=== PATIENT | male | born 1995 | race Caucasian/White ===

== ENCOUNTER 2019-03-10 11:46 | Emergency (ER) | payer SELFPAY ==
[~2019-03-10] VITALS: Ht 167.6 cm; Wt 97.5 kg
--- OUTSIDE RECORDS SUMMARY | 2019-03-10 11:52 | XMS REPORT | Continuity of Care Document ---
Author Organization Unknown Address Unknown Allergies There is no data. Medications There is no data. Problems There is no data. Procedures There is no data. Results There is no data. Encounters ACCT No. Visit Date/Time Discharge Status Pt. Type Provider Facility Loc./Unit Complaint [id number] 06/03/2014 17:11:00 06/03/2014 19:59:00 DIS Emergency [id number] 05/22/2014 21:39:00 05/23/2014 00:18:00 DIS Emergency [id number] 05/21/2014 18:49:00 05/21/2014 23:59:59 CLS Emergency
[2019-03-10] MEDS ORDERED: NS IV 1000 ML 1,000 ML IV STA (12:04)
--- NOTE | 2019-03-10 12:10 | ED Abdominal Pain ---
General Chief Complaint: Abdominal/GI Problems Stated Complaint: VOMITING Nursing Triage Note: Patient reports he went to bed well last night, woke up this morning feeling nauseous, began vomiting around 7 am. States he has vomited approximately 6-7 times this morning, states the last emesis had two streaks of dark red blood. Patient denies any pain, states his abdomen is "sore from throwing up." Normal bowel movement last night. Sepsis Screen: No Definite Risk History of Present Illness Date Seen by Provider: Mar 10, 2019 Time Seen by Provider: 12:07 Initial Comments 23-year-old male with a history of vomiting beginning this morning. He does not know the offending foods ingestion, alcohol or other drug usage. Has been taking quite a bit of ibuprofen recently. Noticed a small amount of blood in his emesis today. No melena or hematochezia reported. Denies fever, chills, urinary symptoms or other associated problems. No urinary complaints reported. Timing/Duration: 12 Hours Severity/Quality: Moderate Location: Epigastric Radiation: No Radiation Allergies and Home Medications Allergies Coded Allergies: cefaclor (Verified Allergy, Unknown, rash, 03/10/19) Patient Home Medication List Home Medication List Reviewed: Yes Review of Systems Review of Systems Constitutional: see HPI, malaise EENTM: No Symptoms Reported Respiratory: No Symptoms Reported Cardiovascular: No Symptoms Reported Gastrointestinal: See HPI Genitourinary: No Symptoms Reported Musculoskeletal: no symptoms reported Skin: no symptoms reported Psychiatric/Neurological: No Symptoms Reported Endocrine: No Symptoms Reported Hematologic/Lymphatic: No Symptoms Reported Past Gisvucd-Bjfnvm-Uyuiij Hx Past Med/Social Hx: Reviewed Nursing Past Med/Soc Hx Patient Social History Recent Foreign Travel: No Contact w/Someone Who Travel: No Recent Infectious Disease Expo: No Physical Exam Vital Signs Vital Signs - First Documented 03/10/19 11:50 Temp 98.6 Pulse 88 Resp 18 B/P (MAP) 132/81 (98) Pulse Ox 93 O2 Delivery Room Air Capillary Refill : Less Than 3 Seconds Height/Weight/BMI Height: 5'6.00" Weight: 215lbs. oz. 97.558692un; BMI Method:Stated General Appearance: WD/WN, no apparent distress HEENT: PERRL/EOMI, normal ENT inspection, TMs normal, pharynx normal; No scleral icterus (R), No scleral icterus (L) Neck: non-tender, full range of motion, supple, normal inspection Respiratory: chest non-tender, lungs clear, normal breath sounds, no respiratory distress, no accessory muscle use Cardiovascular: regular rate, rhythm, no edema, no gallop Gastrointestinal: normal bowel sounds, no organomegaly, no pulsatile mass; No distended; tenderness (in epigastrium) Extremities: normal range of motion, non-tender, normal inspection, no pedal edema, no calf tenderness Back: normal inspection, no CVA tenderness, no vertebral tenderness Neurologic/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: 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, no motor/sensory deficits, alert, normal mood/affect, oriented x 3 Skin: normal color, warm/dry Lymphatic: no adenopathy Progress/Results/Core Measures Results/Orders Lab Results Laboratory Tests Test 03/10/19 12:16 03/10/19 12:40 03/10/19 12:42 Range/Units White Blood Count 10.0 4.3-11.0 10^3/uL Red Blood Count 5.40 4.35-5.85 10^6/uL Hemoglobin 16.2 13.3-17.7 G/DL Hematocrit 48 40-54 % Mean Corpuscular Volume 89 80-99 FL Mean Corpuscular Hemoglobin 30 25-34 PG Mean Corpuscular Hemoglobin Concent 34 32-36 G/DL Red Cell Distribution Width 14.2 10.0-14.5 % Platelet Count 260 130-400 10^3/uL Mean Platelet Volume 9.8 7.4-10.4 FL Neutrophils (%) (Auto) 67 42-75 % Lymphocytes (%) (Auto) 22 12-44 % Monocytes (%) (Auto) 11 0-12 % Eosinophils (%) (Auto) 1 0-10 % Basophils (%) (Auto) 0 0-10 % Neutrophils # (Auto) 6.6 1.8-7.8 X 10^3 Lymphocytes # (Auto) 2.2 1.0-4.0 X 10^3 Monocytes # (Auto) 1.1 H 0.0-1.0 X 10^3 Eosinophils # (Auto) 0.1 0.0-0.3 10^3/uL Basophils # (Auto) 0.0 0.0-0.1 10^3/uL Sodium Level 143 135-145 MMOL/L Potassium Level 3.7 3.6-5.0 MMOL/L Chloride Level 105 98-107 MMOL/L Carbon Dioxide Level 25 21-32 MMOL/L Anion Gap 13 5-14 MMOL/L Blood Urea Nitrogen 10 7-18 MG/DL Creatinine 0.92 0.60-1.30 MG/DL Estimat Glomerular Filtration Rate > 60 BUN/Creatinine Ratio 11 Glucose Level 87 70-105 MG/DL Calcium Level 9.1 8.5-10.1 MG/DL Corrected Calcium 9.0 8.5-10.1 MG/DL Total Bilirubin 0.3 0.1-1.0 MG/DL Aspartate Amino Transf (AST/SGOT) 15 5-34 U/L Alanine Aminotransferase (ALT/SGPT) 15 0-55 U/L Alkaline Phosphatase 79 40-136 U/L Total Protein 7.1 6.4-8.2 GM/DL Albumin 4.1 3.2-4.5 GM/DL Amylase Level 67 25-125 U/L Serum Alcohol 28 H <10 MG/DL Urine Color YELLOW Urine Clarity CLEAR Urine pH 5.5 5-9 Urine Specific [place] >1.030 1.016-1.022 Urine Protein NEGATIVE NEGATIVE Urine Glucose (UA) NEGATIVE NEGATIVE Urine Ketones NEGATIVE NEGATIVE Urine Nitrite NEGATIVE NEGATIVE Urine Bilirubin NEGATIVE NEGATIVE Urine Urobilinogen 0.2 NORMAL MG/DL Urine Leukocyte Esterase NEGATIVE NEGATIVE Urine RBC (Auto) NEGATIVE NEGATIVE Urine RBC NONE /HPF Urine WBC NONE /HPF Urine Crystals NONE /LPF Urine Bacteria NONE /HPF Urine Casts NONE /LPF Urine Mucus MODERATE H /LPF Urine Culture Indicated NO My Orders Orders - ADAMS SAM MD Comprehensive Metabolic Panel (03/10/19 12:04) Amylase (03/10/19 12:04) Ua Culture If Indicated (03/10/19 12:04) Ed Iv/Invasive Line Start (03/10/19 12:04) Cbc With Automated Diff (03/10/19 12:04) Ct Abdomen/Pelvis Wo (03/10/19 12:04) Ondansetron Injection (Zofran Injectio (03/10/19 12:15) Ns Iv 1000 Ml (Sodium Chloride 0.9%) (03/10/19 12:04) Alcohol (03/10/19 12:04) Pantoprazole Injection (Protonix Injecti (03/10/19 12:15) Lipase (03/10/19 12:51) Medications Given in ED Current Medications Medications Dose Ordered Sig/Mickey Route Start Time Stop Time Status Last Admin Dose Admin Ondansetron HCl 4 mg ONCE ONCE IVP 03/10/19 12:15 03/10/19 12:16 DC 03/10/19 12:21 4 MG Pantoprazole 40 mg ONCE ONCE IV 03/10/19 12:15 03/10/19 12:16 DC 03/10/19 12:21 40 MG Vital Signs/I&O 03/10/19 11:50 Temp 98.6 Pulse 88 Resp 18 B/P (MAP) 132/81 (98) Pulse Ox 93 O2 Delivery Room Air Blood Pressure Mean: 98 Progress Progress Note : Time: 12:10 Progress Note We'll initiate IV fluids, administer IV Protonix and Zofran. Obtain workup for his abdominal pain. 1254 Feeling much better. He prefers to go home. Will RX Protonix, avoid NSAIAs and follow up with PCP Diagnostic Imaging Diagonstic Imaging: CT Comments NAME: LOUIS QUEZADA MED REC#: [id number] PT STATUS: REG ER : 1995 PHYSICIAN: ADAMS SAM MD ADMIT DATE: 03/10/19/ER FS Draft Date of Exam:03/10/19 CT ABDOMEN/PELVIS WO PROCEDURE: CT abdomen and pelvis without contrast. TECHNIQUE: Multiple contiguous axial images were obtained through the abdomen and pelvis without the use of intravenous contrast. Auto Exposure Controls were utilized during the CT exam to meet ALARA standards for radiation dose reduction. INDICATION: Nausea, vomiting and hemoptysis COMPARISON: None. FINDINGS: The lung bases are clear. The gallbladder, solid organs, vascular structures and bowel are normal. The appendix is grossly normal. There are a few nonspecific lymph nodes in the mesentery. No bulky lymphadenopathy is seen. Distal ureters and urinary bladder are normal. The prostate is not enlarged. There is no hernia. No free air or free fluid is seen. IMPRESSION: Negative CT abdomen and pelvis. Dictated on workstation # [id number] Dict: 03/10/19 1237 Trans: 03/10/19 1244 [facility] [id number] Interpreted by: MARILOU SEN Electronically signed by: Departure Impression Primary Impression: Dehydration Additional Impression: Nausea and vomiting Qualified Codes: R11.14 - Bilious vomiting Disposition: 01 HOME, SELF-CARE Condition: Improved Departure-Patient Inst. Decision time for Depature: 12:55 Referrals: NO,LOCAL PHYSICIAN (PCP/Family) Primary Care Physician 2-3 days Patient Instructions: Dehydration, Adult (DC), Gastritis (DC) Add. Discharge Instructions: Do not take ibuprofen or other medications, alcohol or other substances that could irritate your stomach. All discharge instructions reviewed with patient and/or family. Voiced understanding. Scripts Pantoprazole Sodium (Protonix) 40 Mg Tablet. 40 MG PO DAILY for 30 Days, TAB Prov: ADAMS ASM MD 03/10/19 Work/School Note: Work Release Form Return to Work: Mar 11, 2019 ADAMS SAM MD Mar 10, 2019 12:10
[2019-03-10] MEDS ORDERED: ONDANSETRON 4 MG/2 ML (SDV) Z0FRAN IVP ONE (12:15)
[2019-03-10] MEDS ORDERED: PANTOPRAZOLE 40 MG (PROTONIX) VIAL IV ONE (12:15)
[2019-03-10 12:24] LABS: BASOPHILS % (AUTO) 0 % (0-10); EOSINOPHILS # (AUTO) 0.1 10^3/uL (0.0-0.3); EOSINOPHILS % (AUTO) 1 % (0-10); HEMATOCRIT 48 % (40-54); HEMOGLOBIN 16.2 G/DL (13.3-17.7); LYMPHOCYTES # (AUTO) 2.2 X 10^3 (1.0-4.0); LYMPHOCYTES % (AUTO) 22 % (12-44); MEAN CORPUSCULAR HEMOGLOBIN 30 PG (25-34); MEAN CORPUSCULAR HGB CONC 34 G/DL (32-36); MEAN CORPUSCULAR VOLUME 89 FL (80-99); MEAN PLATELET VOLUME 9.8 FL (7.4-10.4); MONOCYTES # (AUTO) 1.1 X 10^3 (0.0-1.0); MONOCYTES % (AUTO) 11 % (0-12); NEUTROPHILS # (AUTO) 6.6 X 10^3 (1.8-7.8); NEUTROPHILS % (AUTO) 67 % (42-75); PLATELET COUNT 260 10^3/uL (130-400); RED CELL DISTRIBUTION WIDTH 14.2 % (10.0-14.5)
[2019-03-10 12:41] LABS: ALKALINE PHOSPHATASE 79 U/L (40-136); BILIRUBIN,TOTAL 0.3 MG/DL (0.1-1.0); BUN/CREATININE RATIO 11; CALCIUM 9.1 MG/DL (8.5-10.1); CARBON DIOXIDE 25 MMOL/L (21-32); CHLORIDE 105 MMOL/L (98-107); CREATININE SERUM 0.92 MG/DL (0.60-1.30); GFR ESTIMATED > 60; GLUCOSE 87 MG/DL (70-105); POTASSIUM 3.7 MMOL/L (3.6-5.0); SODIUM 143 MMOL/L (135-145)
[2019-03-10 12:42] LABS: ALANINE AMINOTRANSFERASE 15 U/L (0-55); ALBUMIN 4.1 GM/DL (3.2-4.5); AMYLASE 67 U/L (25-125); TOTAL PROTEIN 7.1 GM/DL (6.4-8.2)
--- NOTE | 2019-03-10 12:45 | Diagnostic Imaging Report ---
PROCEDURE: CT abdomen and pelvis without contrast. TECHNIQUE: Multiple contiguous axial images were obtained through the abdomen and pelvis without the use of intravenous contrast. Auto Exposure Controls were utilized during the CT exam to meet ALARA standards for radiation dose reduction. INDICATION: Nausea, vomiting and hemoptysis COMPARISON: None. FINDINGS: The lung bases are clear. The gallbladder, solid organs, vascular structures and bowel are normal. The appendix is grossly normal. There are a few nonspecific lymph nodes in the mesentery. No bulky lymphadenopathy is seen. Distal ureters and urinary bladder are normal. The prostate is not enlarged. There is no hernia. No free air or free fluid is seen. IMPRESSION: Negative CT abdomen and pelvis. Dictated by: Dictated on workstation # [id number]
[2019-03-10 12:50] LABS: BILIRUBIN,URINE NEGATIVE (NEGATIVE); CLARITY,URINE CLEAR; COLOR,URINE YELLOW; GLUCOSE, URINE (UA) NEGATIVE (NEGATIVE); KETONES,URINE NEGATIVE (NEGATIVE); LEUKOCYTE ESTERASE ,URINE NEGATIVE (NEGATIVE); NITRITE,URINE NEGATIVE (NEGATIVE); PH,URINE 5.5 (5-9); PROTEIN,URINE NEGATIVE (NEGATIVE); UROBILINOGEN,URINE 0.2 MG/DL (NORMAL)
[2019-03-10] MEDS ORDERED: PANT40TA2 PO (12:58)
[2019-03-10 13:22] VITALS: BP 132/81
== END 2019-03-10 13:32 | disposition home or self-care (01) ==
LOC: ER FS 11:48
DX: E86.0 Dehydration (principal); R11.2 Nausea with vomiting, unspecified; Z88.1 Allergy status to other antibiotic agents
CPT/HCPCS: 36415; 74176; 80053; 80320; 81000; 82150; 83690; 85025

== ENCOUNTER 2023-07-24 16:50 | Emergency (ER) | payer SELFPAY ==
[~2023-07-24] VITALS: Ht 168 cm; Wt 100.5 kg
[~2023-07-24 16:50] MED LIST: PANT40TA2 PO
[2023-07-24 17:04] VITALS: BP 139/84
[2023-07-24] MEDS ORDERED: ORPHENADRINE 60 MG/2 ML AMP (ED ONLY) IM STA (17:06)
[2023-07-24] MEDS ORDERED: KETOROLAC INJ 60 MG/2 ML VIAL IM STA (17:06)
[2023-07-24] MEDS ORDERED: CYCL10TA25 PO (17:13)
[2023-07-24] MEDS ORDERED: NAPR-1071 PO (17:13)
--- NOTE | 2023-07-24 17:13 | ED Neck-Back Pain/Injury ---
General Chief Complaint: Head/Cervical Problems Stated Complaint: NECK PAIN Source of Information: Patient History of Present Illness Date Seen by Provider: Jul 24, 2023 Time Seen by Provider: 16:53 Initial Comments 27-year-old male presenting with complaints of right-sided neck pain that started last night while at work. He denies any acute injury or trauma. He does not have any pain or numbness going into his arms or legs. He has not had symptoms like this previously. He does do a lot of straining and lifting at work. When he woke up this afternoon to get ready for work he had some much pain in his neck he could not get up out of bed. He did take 2 Tylenol and pain is doing a little bit better now. He was able to get out of bed and come to the ED to be evaluated. He does not have a primary care provider yet. He does not take any prescription medicines on a routine basis. He has an allergy to cefaclor. Location: C-Spine (Right paraspinal muscles) Timing/Duration: 12-24 Hours Severity: Moderate Pain/Injury Location: Neck (Right paraspinal muscles) Method of Injury: Unknown Modifying Factors: Worse With Movement Associated Symptoms: muscle spasms; No fever, No weakness, No numbness in legs/feet, No tingling in legs/feet, No sensory/motor loss, No lower back pain, No loss of bladder control, No loss of bowel control Allergies and Home Medications Allergies Coded Allergies: cefaclor (Verified Allergy, Unknown, rash, 03/10/19) Patient Home Medication List Home Medication List Reviewed: Yes Cyclobenzaprine HCl (Cyclobenzaprine HCl) 10 Mg Tablet, 10 MG PO Q8H PRN for SPASMS Prescribed by: DAREK AYALA on 07/24/231712 Naproxen (Naprosyn) 500 Mg Tablet, 500 MG PO BID PRN for neck pain Prescribed by: DAREK AYALA on 07/24/231712 Pantoprazole Sodium (Protonix) 40 Mg Tablet.dr 40 MG PO DAILY Prescribed by: ADAMS SAM on 03/10/19 1258 Review of Systems Constitutional: No chills, No fever EENTM: no symptoms reported Respiratory: no symptoms reported Cardiovascular: no symptoms reported Gastrointestinal: no symptoms reported Genitourinary: no symptoms reported Musculoskeletal: see HPI Skin: No change in color Psychiatric/Neurological: Denies Numbness, Denies Weakness Past Zyhfmwa-Gxubzn-Gqilel Hx Patient Social History Tobacco Use?: Yes Tobacco type used: Cigarettes Smoking Status: Current Everyday Smoker Use of E-Cig and/or Vaping dev: No Substance use?: No Alcohol Use?: No Pt feels they are or have been: No Seasonal Allergies Seasonal Allergies: No Past Medical History Surgeries: Yes (left knee surgery) Respiratory: No Cardiac: No Neurological: No Genitourinary: No Gastrointestinal: No Musculoskeletal: No Endocrine: No HEENT: No Cancer: No Psychosocial: No Integumentary: No Physical Exam Vital Signs Vital Signs - First Documented 07/24/23 17:04 Temp 37.3 Pulse 100 Resp 20 B/P (MAP) 139/84 (102) Pulse Ox 97 O2 Delivery Room Air Capillary Refill : Height, Weight, BMI Height: 5'6.00" Weight: 215lbs. oz. 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 His pain seems to be more centered along the paraspinal muscles with muscle spasms. Will try anti-inflammatory with muscle relaxer and have him alternate ice and heat. Try using ice for the first 24 to 48 hours and then may alternate with heat. Check back with primary care provider for continued concerns. Counseled on follow-up and return precautions especially if he was having worsening pain or had numbness or weakness into his arms or legs. Ordered a dose of Toradol 60 mg IM along with Norflex 60 mg IM to help with pain, inflammation, muscle spasms. Prescription to the pharmacy for cyclobenzaprine 10 mg p.o. 3 times daily as needed muscle spasms and naproxen 500 mg p.o. twice daily for pain and inflammation. Departure Impression Primary Impression: Acute cervical myofascial strain Qualified Codes: S16.1XXA - Strain of muscle, fascia and tendon at neck level, initial encounter Additional Impression: Spasm of cervical paraspinous muscle Disposition: HOME, SELF-CARE Condition: Stable Departure-Patient Inst. Decision time for Depature: 17:11 Referrals: NO,LOCAL PHYSICIAN (PCP) Primary Care Physician [facility] [place] Patient Instructions: Neck Pain ED, Muscle Spasm ED, Muscle Strain ED, Using Cold for Pain, Using Heat for Pain Add. Discharge Instructions: Take the muscle relaxer and anti-inflammatory to help with muscle spasms and inflammation to the neck. Apply ice 15 to 20 minutes every few hours as needed for muscle spasms and pain. After the first 24 to 48 hours you could alternate with heat. Return to be seen for medical care if you are having worsening symptoms or develop numbness or weakness in your arms or legs. Establish care with a primary care provider and follow-up through the clinic. You could reach [facility] by calling [phone] All discharge instructions reviewed with patient and/or family. Voiced understanding. Scripts Naproxen (Naprosyn) 500 Mg Tablet 500 MG PO BID PRN for neck pain for 10 Days, #20 TAB 0 Refills Prov: DAREK AYALA MD 07/24/23 Cyclobenzaprine HCl (Cyclobenzaprine HCl) 10 Mg Tablet 10 MG PO Q8H PRN for SPASMS for 5 Days, #15 TAB 0 Refills Prov: DAREK AYALA MD 07/24/23 Work/School Note: Work Release Form Date Seen in the Emergency Department: Jul 24, 2023 Return to Work: Jul 26, 2023 Restrictions: No Restrictions DAREK AYALA MD Jul 24, 2023 17:13
== END 2023-07-24 17:27 | disposition home or self-care (01) ==
LOC: EDUNIT# 16:50 → ER FS 16:52
DX: S16.1XXA Strain of muscle, fascia and tendon at neck level, initial encounter (principal); M62.838 Other muscle spasm; F17.210 Nicotine dependence, cigarettes, uncomplicated; X50.0XXA Overexertion from strenuous movement or load, initial encounter; Y99.0 Civilian activity done for income or pay
CPT/HCPCS: 96372; 99284